=== PATIENT | male | born 1980 | race Asian ===

== ENCOUNTER 2025-09-03 10:29 | Inpatient (IN) | payer BC ==
[~2025-09-03] VITALS: Ht 167.6 cm; Wt 79.9 kg
[2025-09-03] MEDS ORDERED: FUROSEMIDE 40MG/4ML VIAL IV ONE (11:00)
[2025-09-03] MEDS: CALCIUM GLUCONATE 100MG/ML 10ML VIAL IV ONE (11:00)
[2025-09-03 11:31] LABS: BASOPHILS % 1.2 % (0.0-2.0); EOSINOPHILS % 7.4 % (0.0-5.0); LYMPHOCYTES % 9.4 % (20.0-50.0); MEAN PLATELET VOLUME 7.2 fl (7.4-10.4); MONOCYTES % 4.2 % (2.0-8.0); NEUTROPHILS % 77.8 % (40.0-76.0); PLATELET 211 x1000/uL (130-400); RED BLOOD CELL COUNT 2.34 mill/uL (4.7-6.1); RED CELL DISTRIBUTION WIDTH 13.4 % (11.6-14.6)
[2025-09-03 11:41] LABS: INR 0.9
[2025-09-03 11:46] LABS: UREA NITROGEN BLOOD 91 mg/dL (9-23)
[2025-09-03 11:47] LABS: TROPONIN I HIGH SENSITIVITY 19 ng/L (3.0-53)
[2025-09-03 11:48] LABS: ASPARTATE AMINOTRANSFERASE 23 IU/L (<34); BILIRUBIN DIRECT < 0.1 mg/dL (<=3.0); BILIRUBIN TOTAL 0.3 mg/dL (0.1-1.0)
[2025-09-03 11:49] LABS: PROTEIN TOTAL 6.3 g/dL (6.0-8.3)
[2025-09-03 11:51] LABS: CREATININE 16.9 mg/dL (0.6-1.3)
[2025-09-03 12:06] VITALS: PULSE 80; RESP 16; O2SAT 96
[2025-09-03] MEDS: ALBUTEROL (0.5%) 2.5MG/0.5ML NEB HHN ONE (12:06)
[2025-09-03 12:07] LABS: HEMATOCRIT. 20.2 % (42.0-52.0); HEMOGLOBIN. 6.9 g/dL (14.0-18.0)
[2025-09-03] MEDS: DEXTROSE 50% WATER 50ML SYRINGE IV ONE (13:04)
[2025-09-03] MEDS: INSULIN REGULAR (HUMULIN R) 1000UNITS/10ML VIAL IV ONE (13:05)
[2025-09-03] MEDS: SODIUM ZIRCONIUM CYCLOSILICATE 10GM/PACKET PO ONE (14:23)
[2025-09-03] MEDS: FUROSEMIDE 40MG/4ML VIAL IV NR (14:35)
[2025-09-03] MEDS ORDERED: IPRATROPIUM/ALBUTEROL 0.5-3(2.5)MG/3ML NEB NEB PRN (19:00)
[2025-09-03] MEDS ORDERED: MORPHINE SULFATE 10 MG/ML INJ (NOT FOR IM USE) IV PRN (19:00)
[2025-09-03] MEDS ORDERED: LORAZEPAM 0.5MG TABLET PO PRN (19:00)
[2025-09-03] MEDS ORDERED: ONDANSETRON HCL 4MG/2ML INJ IV PRN (19:00)
[2025-09-03] MEDS ORDERED: NALOXONE HCL 0.4MG/ML VIAL IV PRN (19:15)
[2025-09-03 20:00] VITALS: BP 157/92; PULSE 79; RESP 20; TEMP 36.5; TEMP 36.5292; O2SAT 100
[2025-09-03] MEDS: FUROSEMIDE 40MG/4ML VIAL IV SCH (21:33)
[2025-09-04] VITALS (20 sets, daily range): BP systolic 151–209; BP diastolic 90–118; PULSE 68–81; RESP 16–20; TEMP 36.6–36.9; O2SAT 99–100
[2025-09-04] MEDS ORDERED: ATOR40TA70 PO (00:26)
[2025-09-04] MEDS ORDERED: CARV25TA47 PO (00:26)
[2025-09-04] MEDS ORDERED: NIFE90TA2 PO (00:26)
[2025-09-04] MEDS ORDERED: ASPI-1497 PO (00:26)
[2025-09-04] MEDS ORDERED: LOSA100T33 PO (00:26)
[2025-09-04] MEDS ORDERED: CLON0.1T PO (00:26)
[2025-09-04 04:14] LABS: CLARITY URINE CLEAR (CLEAR); COLOR URINE YELLOW (YELLOW); GLUCOSE URINE TRACE (NEGATIVE); KETONES URINE NEGATIVE (NEGATIVE); LEUKOCYTE ESTERASE URINE NEGATIVE (NEGATIVE); NITRITE URINE NEGATIVE (NEGATIVE); OCCULT BLOOD URINE 1+ (NEGATIVE); PH URINE 6.0 (4.5-8.0); PROTEIN URINE 4+ (NEGATIVE); SPECIFIC GRAVITY URINE 1.011 (1.005-1.030); UROBILINOGEN URINE 0.2 E.U./dL (0.2-1.0)
[2025-09-04 06:58] LABS: SQUAMOUS EPITHELIAL CELL URINE FEW /lpf (RARE/1+)
[2025-09-04 07:00] LABS: BACTERIA URINE NONE SEEN; RBC URINE 0-2 /hpf (0-2); WBC URINE 0-2 /hpf (0-2)
[2025-09-04 09:53] LABS: BASOPHILS % 1.1 % (0.0-2.0); EOSINOPHILS % 7.7 % (0.0-5.0); LYMPHOCYTES % 15.3 % (20.0-50.0); MEAN PLATELET VOLUME 7.6 fl (7.4-10.4); MONOCYTES % 6.0 % (2.0-8.0); NEUTROPHILS % 69.9 % (40.0-76.0); PLATELET 212 x1000/uL (130-400); RED BLOOD CELL COUNT 2.43 mill/uL (4.7-6.1); RED CELL DISTRIBUTION WIDTH 13.3 % (11.6-14.6)
[2025-09-04 09:57] LABS: HEMATOCRIT. 20.9 % (42.0-52.0); HEMOGLOBIN. 7.1 g/dL (14.0-18.0); INR 0.9
[2025-09-04] MEDS ORDERED: CEFAZOLIN 1000MG PREMIX 50 ML IV ONE (10:02)
[2025-09-04 10:03] LABS: UREA NITROGEN BLOOD 96 mg/dL (9-23)
[2025-09-04 10:09] LABS: CREATININE 17.2 mg/dL (0.6-1.3)
[2025-09-04] MEDS ORDERED: LIDOCAINE HCL 1% 10 MG/ML 10ML VIAL ONE (10:11)
[2025-09-04 10:13] LABS: PHOSPHORUS 9.1 mg/dL (2.5-4.9)
[2025-09-04] MEDS ORDERED: FENTANYL CITRATE/PF 50MCG/ML 2ML VIAL ONE (10:29)
[2025-09-04] MEDS: FENTANYL CITRATE/PF 50MCG/ML 2ML VIAL IV NR (10:30)
[2025-09-04] MEDS: CEFAZOLIN 1000MG PREMIX 50 ML IV ONE (10:30)
[2025-09-04 12:04] LABS: HEPATITIS A AB IGM NEGATIVE (Negative)
[2025-09-04 12:05] LABS: HEPATITIS B CORE AB IGM NEGATIVE (Negative); HEPATITIS C AB NON REACTIVE (Neg) (Negative)
[2025-09-04 12:44] LABS: HEPATITIS A AB IGM NEGATIVE (Negative)
[2025-09-04] MEDS: NIFEDIPINE XL 90MG TAB PO SCH (13:08)
[2025-09-04] MEDS: ATORVASTATIN CALCIUM 40MG TABLET PO SCH (14:22)
[2025-09-04] MEDS: ASPIRIN 81MG TABLET PO SCH (14:22)
[2025-09-04] MEDS: LOSARTAN 100 MG TABLET PO SCH (14:22)
[2025-09-04] MEDS: CLONIDINE 0.1MG TABLET PO SCH (15:12)
[2025-09-04] MEDS: CARVEDILOL 12.5MG TABLET PO SCH (17:14)
[2025-09-04] MEDS ORDERED: CLONIDINE 0.1MG TABLET PO SCH (21:00)
[2025-09-04] MEDS ORDERED: CARVEDILOL 12.5MG TABLET PO SCH ×2 (21:00)
[2025-09-05] VITALS (11 sets, daily range): BP systolic 129–185; BP diastolic 76–100; PULSE 70–97; RESP 17–20; TEMP 36.114–37.1; O2SAT 93–100
[2025-09-05] MEDS: ATORVASTATIN CALCIUM 40MG TABLET PO SCH (21:56)
[2025-09-06] VITALS: BP 135/67; PULSE 69; RESP 18; TEMP 36.8; O2SAT 97
[2025-09-06] MEDS: HYDROCODONE/ACETAMINOPHEN 7.5/325MG TABLET PO PRN (00:25)
[2025-09-06 04:00] VITALS: BP 137/68; PULSE 70; RESP 18; TEMP 36.9; O2SAT 98
[2025-09-06 08:00] VITALS: BP 155/92; PULSE 73; RESP 19; TEMP 37.5; O2SAT 97
[2025-09-06 12:00] VITALS: BP 132/69; PULSE 77; RESP 20; TEMP 37.2; O2SAT 99
[2025-09-06 15:35] VITALS: BP 148/84; PULSE 69; RESP 20; TEMP 99
== END 2025-09-06 16:28 | disposition home or self-care (01) | DRG 291 ==
LOC: ER 10:29 → 7WST 12:32 → EDBEDREQ 12:46 → EDBEDREQTM 12:46
PROVIDERS: ADMIT Internal Medicine Nephrology; ATTEND Internal Medicine Nephrology
PROC: 5A09357 Assistance with Respiratory Ventilation, Less than 24 Consecutive Hours, Continuous Positive Airway Pressure (ICD-10-PCS; principal; 2025-09-03)
PROC: 0JH63XZ Insertion of Tunneled Vascular Access Device into Chest Subcutaneous Tissue and Fascia, Percutaneous Approach (ICD-10-PCS; 2025-09-04)
PROC: 5A1D70Z Performance of Urinary Filtration, Intermittent, Less than 6 Hours Per Day (ICD-10-PCS; 2025-09-04)
PROC: 02HV33Z Insertion of Infusion Device into Superior Vena Cava, Percutaneous Approach (ICD-10-PCS; 2025-09-04)
PROC: B5181ZA Fluoroscopy of Superior Vena Cava using Low Osmolar Contrast, Guidance (ICD-10-PCS; 2025-09-04)
PROC: B548ZZA Ultrasonography of Superior Vena Cava, Guidance (ICD-10-PCS; 2025-09-04)
PROC: 5A1D70Z Performance of Urinary Filtration, Intermittent, Less than 6 Hours Per Day (ICD-10-PCS; 2025-09-05)
DX: I13.2 Hypertensive heart and chronic kidney disease with heart failure and with stage 5 chronic kidney disease, or end stage renal disease (principal); N18.6 End stage renal disease; D63.1 Anemia in chronic kidney disease; E11.22 Type 2 diabetes mellitus with diabetic chronic kidney disease; I50.9 Heart failure, unspecified; Z99.2 Dependence on renal dialysis
CPT/HCPCS: 36415; 36558; 71045; 76937; 80048; 80076; 81003; 82962; 83735; 83880; 84100; 84484; 85025; 86705; 86706; 86709; 86850; 86900; 87340; 90935; 93005; 94640; 94660; 99152; 99153; 99285; A4606; C1750; C1769; C1887; J0612; J0690; J1642; J1815; J1938; J2003; J3010; G0500